=== PATIENT | male | born 1960 | race Caucasian/White ===

== ENCOUNTER → 2017-10-20 | Outpatient (CLI) | payer OTHER ==
[~2017-10-20] MED LIST: AMARYL2 MG PO; CARBIDOPA-LEVO1 EAC9 PO; COREG6.25 MG PO; FLOMAX0.4 MG PO; FLOVENT HFA 4444 MCG INH; JANUVIA100 MG PO; LISINOPRIL5 MG PO; LUNESTA3 MG PO; METFORMIN HCL500 MG PO; MIRAPEX0.5 MG PO; PERCOCET PO; REMERON15 MG PO; SINEMET CR 25-1 EACH PO; XARELTO20 MG PO; ZOLOFT50 MG PO
--- NOTE | ~2017-10-20 | EKG ---
[place] [address] [email or web address] [place] [address] ELECTROCARDIOGRAM REPORT Name: KENAN LOPEZ Room #: REG CLI [facility]#: [id number] Admission: 10/20/17 Attend Phys: Janette Burns MD Discharge: Date of : 62 Report #: [id number] THIS REPORT FOR: //name// [facility] Test Date: 2017-10-20 Test Time: 07:12:33 Pat Name: KENAN LOPEZ Department: Room: Gender: M Brand Attendant: DONY : 1960 Requested By: Janette Burns Order Number: [id number] MD: Govind Patrick Measurements Intervals [place] Rate: 83 P: 10 MS: 144 QRS: -5 QRSD: 153 T: QT: 350 QTc: 412 Interpretive Statements Sinus rhythm No significant abnormality Artifact in lead(s) I,II,III,aVR,aVL,aVF,V1,V2 No previous ECG available for comparison Electronically Signed On 10-20-2017 9:08:39 AUTOGLAZIER by Govind Patrick [email or web address] <ELECTRONICALLY SIGNED> By: Govind Patrick MD, [facility] [id number] 1 1 Govind Patrick MD, [facility] /EPI
== END | disposition home or self-care (01) ==
LOC: LITH 06:47
DX: N20.1 Calculus of ureter (principal); I10 Essential (primary) hypertension; G20 Parkinson's disease; E11.9 Type 2 diabetes mellitus without complications; J45.909 Unspecified asthma, uncomplicated; G47.33 Obstructive sleep apnea (adult) (pediatric); Z86.010 Personal history of colon polyps; Z98.890 Other specified postprocedural states; Z86.73 Personal history of transient ischemic attack (TIA), and cerebral infarction without residual deficits; Z90.49 Acquired absence of other specified parts of digestive tract; Z91.040 Latex allergy status; Z79.899 Other long term (current) drug therapy